=== PATIENT | female | born 2000 | race Native Hawaiian/Other Pacific Islander ===

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

== ENCOUNTER 2019-09-12 21:18 | Emergency (ER) | payer BC ==
[~2019-09-12] VITALS: Ht 170.2 cm; Wt 90.7 kg
[2019-09-12 22:26] LABS: POTASSIUM 3.5 mmol/L (3.6-5.2)
[2019-09-12 22:27] LABS: PLATELET COUNT 280 K/uL (152-353)
[2019-09-12 23:21] VITALS: BP 140/90; TEMP 98.6
== END 2019-09-12 23:22 | disposition home or self-care (01) ==
LOC: ED 21:18
PROVIDERS: Emergency Medicine
DX: L03.115 Cellulitis of right lower limb (principal)
CPT/HCPCS: 80053; 85027; 87070; 87077; 87186; 87205; 96372; 99283; J0696; J1885

== ENCOUNTER 2022-04-06 21:55 | Emergency (ER) | payer BC, OTHER ==
[~2022-04-06] VITALS: Ht 170.2 cm; Wt 90.7 kg
[2022-04-06 22:35] LABS: PLATELET COUNT 340 K/uL (152-353)
[2022-04-07 00:40] VITALS: BP 143/98; TEMP 98.2
== END 2022-04-07 00:40 | disposition left against medical advice (07) ==
LOC: ED 21:55
PROVIDERS: Emergency Medicine
DX: R07.89 Other chest pain (principal); R79.89 Other specified abnormal findings of blood chemistry; Z53.29 Procedure and treatment not carried out because of patient's decision for other reasons
CPT/HCPCS: 36415; 80048; 84484; 85027; 85379; 93005; 99284